=== PATIENT | male | born 1960 | race Caucasian/White ===

== ENCOUNTER 2023-12-19 17:01 | Inpatient (IN) ==
[2023-12-19] MEDS ORDERED: IOPAMIDOL 100 ML BOTTLE IV ONE (17:02)
[2023-12-19 18:04] LABS: Basophils # (Auto) 0.01 K/mcL (0.00-0.30); Basophils % (Auto) 0.1 % (0.0-2.0); Eosinophils # (Auto) 0 K/mcL (0.00-0.70); Eosinophils % (Auto) 0 % (0.0-7.0); Hematocrit 29.6 % (40.1-51.0); Hemoglobin 9.7 g/dL (13.7-17.5); Lymphocytes # (Auto) 0.57 K/mcL (1.50-4.80); Lymphocytes % (Auto) 6.1 % (15.5-49.0); Mean Cell Volume 78.1 fL (80.0-100.0); Mean Corpuscular HGB Conc 32.8 g/dL (31.0-36.0); Mean Platelet Volume 10.5 fL (8.8-12.5); Monocytes # (Auto) 0.84 K/mcL (0.10-0.90); Monocytes % (Auto) 9.1 % (1.0-12.0); Neutrophils % (Auto) 83.4 % (38.0-78.0); Platelet Count 315 K/mcL (140-440); RBC 3.79 M/mcL (4.63-6.08); Red Cell Distribution Width 19.4 % (11.5-14.5); WBC 9.3 K/mcL (4.5-11.0)
[2023-12-19] MEDS: 0.9 % SODIUM CHLORIDE 500 ML IV ONE (18:21)
[2023-12-19 18:31] LABS: ALT/SGPT 200 U/L (<40); AST/SGOT 134 U/L (<40); Albumin 3.3 gm/dL (3.2-5.2); Alkaline Phosphatase 971 U/L (39-117); Bilirubin,Total 0.5 mg/dL (0.1-1.0); Blood Urea Nitrogen 69 mg/dL (8-23); Calcium 8.9 mg/dL (8.6-10.4); Carbon Dioxide 21 mmol/L (22-30); Chloride 91 mmol/L (96-108); Globulin 3.3 gm/dL (2.2-3.7); Glomerular Filtration Rate 44; Glucose 164 mg/dL (70-105)
[2023-12-19] MEDS: POTASSIUM CHLORIDE 20 MEQ/10 ML VIAL IV ONE (19:07)
[2023-12-19] MEDS: POTASSIUM CHLORIDE 40 MEQ in DEXTROSE 5% IN WATER 500 ML IV ONE (19:12)
[2023-12-19] MEDS: POTASSIUM CHLORIDE 20 MEQ TABLET PO ONE (19:13)
[2023-12-19] MEDS ORDERED: MAGNESIUM SULFATE 2 GM/50 ML BAG IV PRN (21:34)
[2023-12-19] MEDS ORDERED: IPRATROPIUM/ALBUTEROL 3 ML AMPUL.NEB NEB PRN (21:34)
[2023-12-19] MEDS ORDERED: ACETAMINOPHEN 325 MG TABLET PO PRN (21:34)
[2023-12-19] MEDS: 0.9 % SODIUM CHLORIDE 1,000 ML IV SCH (22:34)
[2023-12-20] MEDS: HYDROcodone/APAP 5/325MG TABLET PO PRN (00:16)
[2023-12-20 06:12] LABS: Basophils # (Auto) 0 K/mcL (0.00-0.30); Basophils % (Auto) 0 % (0.0-2.0); Eosinophils # (Auto) 0.02 K/mcL (0.00-0.70); Eosinophils % (Auto) 0.2 % (0.0-7.0); Hematocrit 30.6 % (40.1-51.0); Lymphocytes # (Auto) 0.53 K/mcL (1.50-4.80); Lymphocytes % (Auto) 6.3 % (15.5-49.0); Mean Cell Volume 78.5 fL (80.0-100.0); Mean Corpuscular HGB Conc 32.7 g/dL (31.0-36.0); Monocytes # (Auto) 0.66 K/mcL (0.10-0.90); Monocytes % (Auto) 7.9 % (1.0-12.0); Neutrophils % (Auto) 84.5 % (38.0-78.0); Platelet Count 305 K/mcL (140-440); Red Cell Distribution Width 19.4 % (11.5-14.5); WBC 8.4 K/mcL (4.5-11.0)
[2023-12-20 06:41] LABS: ALT/SGPT 163 U/L (<40); AST/SGOT 83 U/L (<40); Albumin 3.3 gm/dL (3.2-5.2); Alkaline Phosphatase 850 U/L (39-117); Bilirubin,Direct < 0.2 mg/dL (0-0.3); Bilirubin,Total 0.4 mg/dL (0.1-1.0); Blood Urea Nitrogen 62 mg/dL (8-23); Calcium 8.9 mg/dL (8.6-10.4); Carbon Dioxide 21 mmol/L (22-30); Chloride 95 mmol/L (96-108); Globulin 3.4 gm/dL (2.2-3.7); Glomerular Filtration Rate 57; Glucose 134 mg/dL (70-105); Lactate Dehydrogenase 196 U/L (135-225); Phosphorous 4.3 mg/dL (2.5-4.5); Triglycerides 198 mg/dL (<150); Uric Acid 11.7 mg/dL (2.5-8.0)
[2023-12-20] MEDS: ONDANSETRON 4 MG/2 ML VIAL IV PRN (07:14)
[2023-12-20] MEDS: POTASSIUM CHLORIDE 20 MEQ TABLET PO PRN (07:15)
[2023-12-20] MEDS: POTASSIUM CHLORIDE 40 MEQ in DEXTROSE 5% IN WATER 500 ML IV PRN (08:11)
[2023-12-20] MEDS: METHOCARBAMOL 500 MG TABLET PO PRN (10:36)
[2023-12-20] MEDS: DIPHENOXYLATE HCL/ATROPINE 1 TABLET PO PRN (20:59)
[2023-12-20] MEDS: TAMSULOSIN 0.4 MG CAPSULE PO SCH (20:59)
[2023-12-20] MEDS ORDERED: POTASSIUM CHLORIDE 20 MEQ TABLET PO SCH (21:00)
[2023-12-20] MEDS: POTASSIUM CHLORIDE 20 MEQ/10 ML VIAL IV ONE (21:11)
[2023-12-21 06:44] LABS: Basophils # (Auto) 0 K/mcL (0.00-0.30); Basophils % (Auto) 0 % (0.0-2.0); Eosinophils # (Auto) 0.02 K/mcL (0.00-0.70); Eosinophils % (Auto) 0.2 % (0.0-7.0); Hemoglobin 9.2 g/dL (13.7-17.5); Lymphocytes # (Auto) 0.37 K/mcL (1.50-4.80); Lymphocytes % (Auto) 4.4 % (15.5-49.0); Mean Cell Volume 81.2 fL (80.0-100.0); Mean Corpuscular HGB Conc 31.7 g/dL (31.0-36.0); Mean Platelet Volume 9.4 fL (8.8-12.5); Monocytes # (Auto) 0.44 K/mcL (0.10-0.90); Monocytes % (Auto) 5.2 % (1.0-12.0); Neutrophils % (Auto) 89.6 % (38.0-78.0); Platelet Count 246 K/mcL (140-440); RBC 3.57 M/mcL (4.63-6.08); Red Cell Distribution Width 19.4 % (11.5-14.5); WBC 8.4 K/mcL (4.5-11.0)
[2023-12-21 06:58] LABS: ALT/SGPT 99 U/L (<40); AST/SGOT 55 U/L (<40); Albumin 2.7 gm/dL (3.2-5.2); Albumin/Globulin Ratio 0.9 (1.0-2.3); Alkaline Phosphatase 664 U/L (39-117); Bilirubin,Direct < 0.2 mg/dL (0-0.3); Bilirubin,Total 0.3 mg/dL (0.1-1.0); Blood Urea Nitrogen 36 mg/dL (8-23); Calcium 8.3 mg/dL (8.6-10.4); Carbon Dioxide 16 mmol/L (22-30); Chloride 105 mmol/L (96-108); Glomerular Filtration Rate 89; Glucose 126 mg/dL (70-105); Lactate Dehydrogenase 204 U/L (135-225); Triglycerides 140 mg/dL (<150); Uric Acid 8.7 mg/dL (2.5-8.0)
[2023-12-21] MEDS: POTASSIUM PHOSPHATE 40 MEQ in DEXTROSE 5% IN WATER 500 ML IV ONE (09:00)
[2023-12-21] MEDS: OCTREOTIDE ACETATE 100 MCG/ML VIAL SQ SCH (09:00)
[2023-12-21] MEDS: POTASSIUM CHLORIDE 20 MEQ TABLET PO PRN (09:01)
[2023-12-21] MEDS: SODIUM BICARBONATE 650 MG TABLET PO SCH (09:01)
[2023-12-21] MEDS: SODIUM BICARBONATE VIAL 150 MEQ in DEXTROSE 5% IN WATER 850 ML IV ONE (10:30)
[2023-12-21] MEDS: LACTATED RINGERS 1,000 ML IV SCH ×2 (10:46→20:30)
[2023-12-21 11:07] LABS: Appearance,Urine Clear (Clear); Bacteria,Urine 0 /hpf (0); Bilirubin,Urine Negative (Negative); Color,Urine Yellow; Culture Indicated,Urine No; Glucose,Urine (UA) Negative (Negative); Ketones,Urine Negative (Negative); Leukocyte Esterase,Urine Negative /uL (Negative); Nitrate,Urine Negative (Negative); Protein,Urine 100 mg/dL (Negative); Urine Blood Negative ery/mcL (Negative); Urine Granular Cast 2 /lph (0-0); Urine RBC 0 /hpf (0-3); Urine Squamous Epithelial Cell 0 /hpf (0-4); Urine WBC 0 /hpf (0-4); Urobilinogen,Urine Normal
[2023-12-21 20:36] LABS: Blood Urea Nitrogen 32 mg/dL (8-23); Carbon Dioxide 20 mmol/L (22-30); Chloride 100 mmol/L (96-108); Glomerular Filtration Rate 89; Glucose 190 mg/dL (70-105); Phosphorous 2.8 mg/dL (2.5-4.5)
[2023-12-21] MEDS: 0.9 % SODIUM CHLORIDE 10 ML SYRINGE IV SCH (23:54)
[2023-12-22 06:38] LABS: Basophils # (Auto) 0.02 K/mcL (0.00-0.30); Basophils % (Auto) 0.4 % (0.0-2.0); Eosinophils # (Auto) 0.09 K/mcL (0.00-0.70); Eosinophils % (Auto) 1.9 % (0.0-7.0); Hematocrit 29.7 % (40.1-51.0); Hemoglobin 9.5 g/dL (13.7-17.5); Lymphocytes % (Auto) 12.4 % (15.5-49.0); Mean Cell Volume 80.9 fL (80.0-100.0); Mean Platelet Volume 9.8 fL (8.8-12.5); Monocytes # (Auto) 0.49 K/mcL (0.10-0.90); Monocytes % (Auto) 10.1 % (1.0-12.0); Platelet Count 273 K/mcL (140-440); RBC 3.67 M/mcL (4.63-6.08); Red Cell Distribution Width 19.2 % (11.5-14.5); WBC 4.8 K/mcL (4.5-11.0)
[2023-12-22 07:12] LABS: ALT/SGPT 74 U/L (<40); AST/SGOT 34 U/L (<40); Albumin 2.9 gm/dL (3.2-5.2); Alkaline Phosphatase 507 U/L (39-117); Bilirubin,Direct 0.2 mg/dL (<0.3); Bilirubin,Total 0.4 mg/dL (0.1-1.0); Blood Urea Nitrogen 29 mg/dL (8-23); Calcium 8.2 mg/dL (8.6-10.4); Carbon Dioxide 21 mmol/L (22-30); Chloride 99 mmol/L (96-108); Globulin 2.9 gm/dL (2.2-3.7); Glomerular Filtration Rate 78; Glucose 149 mg/dL (70-105); Lactate Dehydrogenase 164 U/L (135-225); Phosphorous 2.3 mg/dL (2.5-4.5); Triglycerides 135 mg/dL (<150); Uric Acid 8.6 mg/dL (2.5-8.0)
[2023-12-22] MEDS: OCTREOTIDE SC SCH (09:53)
[2023-12-22 11:16] LABS: Blood Urea Nitrogen 28 mg/dL (8-23); Calcium 8.3 mg/dL (8.6-10.4); Carbon Dioxide 22 mmol/L (22-30); Chloride 99 mmol/L (96-108); Glomerular Filtration Rate 78; Glucose 170 mg/dL (70-105)
[2023-12-22] MEDS: POTASSIUM PHOSPHATE 20 MEQ in DEXTROSE 5% IN WATER 250 ML IV ONE (11:52)
[2023-12-22] MEDS: POTASSIUM CHLORIDE 20 MEQ TABLET PO ONE (12:30)
[2023-12-22] MEDS: SODIUM PHOSPHATE 15 MMOL in DEXTROSE 5% IN WATER 250 ML IV ONE (12:31)
[2023-12-22] MEDS: LORATADINE 10 MG TABLET PO SCH (14:49)
[2023-12-22 18:11] LABS: Phosphorous 2.8 mg/dL (2.5-4.5)
[2023-12-22 18:13] LABS: Blood Urea Nitrogen 30 mg/dL (8-23); Carbon Dioxide 20 mmol/L (22-30); Chloride 99 mmol/L (96-108); Glomerular Filtration Rate 78; Glucose 235 mg/dL (70-105)
[2023-12-22 18:13] LABS: Blood Urea Nitrogen 29 mg/dL (8-23); Calcium 8.2 mg/dL (8.6-10.4); Carbon Dioxide 22 mmol/L (22-30); Chloride 98 mmol/L (96-108); Glomerular Filtration Rate 78; Glucose 156 mg/dL (70-105)
[2023-12-22] MEDS: OCTREOTIDE ACETATE 100 MCG/ML VIAL SQ SCH (20:55)
[2023-12-22] MEDS: POTASSIUM CHLORIDE 20 MEQ TABLET PO SCH (20:55)
[2023-12-23 06:26] LABS: Basophils # (Auto) 0.03 K/mcL (0.00-0.30); Basophils % (Auto) 0.5 % (0.0-2.0); Eosinophils # (Auto) 0.08 K/mcL (0.00-0.70); Eosinophils % (Auto) 1.3 % (0.0-7.0); Hematocrit 31.1 % (40.1-51.0); Hemoglobin 9.9 g/dL (13.7-17.5); Lymphocytes # (Auto) 0.88 K/mcL (1.50-4.80); Lymphocytes % (Auto) 14.4 % (15.5-49.0); Mean Cell Volume 80.6 fL (80.0-100.0); Mean Corpuscular HGB Conc 31.8 g/dL (31.0-36.0); Mean Platelet Volume 9.8 fL (8.8-12.5); Monocytes # (Auto) 0.58 K/mcL (0.10-0.90); Monocytes % (Auto) 9.5 % (1.0-12.0); Neutrophils % (Auto) 73.2 % (38.0-78.0); Platelet Count 311 K/mcL (140-440); RBC 3.86 M/mcL (4.63-6.08); WBC 6.1 K/mcL (4.5-11.0)
[2023-12-23 06:49] LABS: Phosphorous 2.3 mg/dL (2.5-4.5)
[2023-12-23 08:13] LABS: Blood Urea Nitrogen 28 mg/dL (8-23); Carbon Dioxide 21 mmol/L (22-30); Chloride 99 mmol/L (96-108); Glomerular Filtration Rate 70; Glucose 150 mg/dL (70-105)
[2023-12-23] MEDS: CALCIUM GLUCONATE 4.65 MEQ in DEXTROSE 5% IN WATER 50 ML IV ONE (09:56)
[2023-12-23] MEDS: FLUTICASONE PROPIONATE SPRAY.NAS NS SCH (09:56)
[2023-12-23] MEDS: POTASSIUM PHOSPHATE 40 MEQ in DEXTROSE 5% IN WATER 500 ML IV ONE (10:41)
[2023-12-23] MEDS: CALCIUM GLUCONATE 4.65 MEQ/10 ML VIAL IV ONE (11:59)
[2023-12-23] MEDS: SIMETHICONE 80 MG TAB.CHEW CHEWED ONE (13:26)
[2023-12-24 06:32] LABS: Basophils # (Auto) 0.03 K/mcL (0.00-0.30); Basophils % (Auto) 0.6 % (0.0-2.0); Eosinophils # (Auto) 0.06 K/mcL (0.00-0.70); Eosinophils % (Auto) 1.2 % (0.0-7.0); Hematocrit 28.1 % (40.1-51.0); Hemoglobin 8.8 g/dL (13.7-17.5); Lymphocytes # (Auto) 0.65 K/mcL (1.50-4.80); Lymphocytes % (Auto) 12.8 % (15.5-49.0); Mean Cell Volume 81.4 fL (80.0-100.0); Mean Corpuscular HGB Conc 31.3 g/dL (31.0-36.0); Mean Platelet Volume 9.7 fL (8.8-12.5); Monocytes # (Auto) 0.73 K/mcL (0.10-0.90); Monocytes % (Auto) 14.4 % (1.0-12.0); Platelet Count 265 K/mcL (140-440); RBC 3.45 M/mcL (4.63-6.08); Red Cell Distribution Width 19.1 % (11.5-14.5); WBC 5.1 K/mcL (4.5-11.0)
[2023-12-24 06:48] LABS: Phosphorous 2.7 mg/dL (2.5-4.5)
[2023-12-24 07:29] LABS: Blood Urea Nitrogen 24 mg/dL (8-23); Carbon Dioxide 22 mmol/L (22-30); Chloride 98 mmol/L (96-108); Glomerular Filtration Rate 78; Glucose 156 mg/dL (70-105)
[2023-12-24] MEDS: POTASSIUM CHLORIDE 20 MEQ TABLET PO SCH (09:05)
[2023-12-24] MEDS: CALCIUM GLUCONATE 9.3 MEQ in DEXTROSE 5% IN WATER 50 ML IV ONE (09:06)
[2023-12-24] MEDS: CALCIUM GLUCONATE 4.65 MEQ/10 ML VIAL IV ONE ×2 (10:47→19:55)
[2023-12-24] MEDS: SIMETHICONE 80 MG TAB.CHEW CHEWED PRN (14:30)
[2023-12-24] MEDS: LOPERAMIDE 2 MG CAPSULE PO ONE ×3 (19:56→21:02)
[2023-12-24] MEDS: CALCIUM GLUCONATE 4.65 MEQ/10 ML VIAL ONE ×2 (21:02)
[2023-12-24] MEDS ORDERED: CALCIUM GLUCONATE 4.65 MEQ/10 ML VIAL IV ONE (21:15)
[2023-12-24] MEDS: POTASSIUM CHLORIDE 20 MEQ in DEXTROSE 5% IN WATER 250 ML IV ONE (21:34)
[2023-12-24] MEDS: POTASSIUM CHLORIDE 20 MEQ PACKET PO ONE (21:34)
[2023-12-24] MEDS: POTASSIUM CHLORIDE 20 MEQ/10 ML VIAL IV ONE (21:35)
[2023-12-25] MEDS: POTASSIUM CHLORIDE 20 MEQ/10 ML VIAL IV ONE (00:37)
[2023-12-25] MEDS: POTASSIUM CHLORIDE 20 MEQ in DEXTROSE 5% IN WATER 250 ML IV ONE (00:37)
[2023-12-25 07:07] LABS: Basophils # (Auto) 0.04 K/mcL (0.00-0.30); Basophils % (Auto) 0.6 % (0.0-2.0); Eosinophils # (Auto) 0.06 K/mcL (0.00-0.70); Hemoglobin 9.3 g/dL (13.7-17.5); Lymphocytes # (Auto) 0.53 K/mcL (1.50-4.80); Lymphocytes % (Auto) 8.5 % (15.5-49.0); Mean Cell Volume 82.9 fL (80.0-100.0); Mean Platelet Volume 9.5 fL (8.8-12.5); Monocytes # (Auto) 0.81 K/mcL (0.10-0.90); Monocytes % (Auto) 12.9 % (1.0-12.0); Neutrophils % (Auto) 75.1 % (38.0-78.0); Platelet Count 331 K/mcL (140-440); RBC 3.62 M/mcL (4.63-6.08); Red Cell Distribution Width 19.6 % (11.5-14.5); WBC 6.3 K/mcL (4.5-11.0)
[2023-12-25 08:01] LABS: Blood Urea Nitrogen 21 mg/dL (8-23); Carbon Dioxide 20 mmol/L (22-30); Chloride 102 mmol/L (96-108); Glomerular Filtration Rate 89; Glucose 147 mg/dL (70-105)
[2023-12-25] MEDS: POTASSIUM CHLORIDE 20 MEQ PACKET PO SCH (08:58)
[2023-12-31 03:39] LABS: Aldosterone Serum 2.4 ng/dL; Aldosterone/PRA Ratio 0.4; Renin Activity, Plasma 5.9 ng/mL/hr
== END 2023-12-25 11:45 | disposition home or self-care (01) | DRG 374 ==
LOC: ED 17:01 → ICU 21:20 → MEDSUR 12-21 14:36
PROVIDERS: ADMIT Internal Medicine; ATTEND Student in an Organized Health Care Education/Training Program